=== PATIENT | female | born 1970 | race Caucasian/White ===

== ENCOUNTER 2022-02-22 22:29 | Observation (INO) | payer OTHER ==
[2022-02-22] MEDS ORDERED: ACETAMINOPHEN 1000 MG/100 ML BAG IVPB ONE (23:57)
[2022-02-23 00:35] LABS: BASO % 0.7 % (0-2.0); EOS % 3.7 % (0-4.5); HEMOGLOBIN 12.7 GM/dL (10.7-15.3)
[2022-02-23 00:37] LABS: HEMATOCRIT 37.9 % (32.4-45.2); LYMPH % 42.8 % (8-40); MCH 28.4 pg (25.7-33.7); MCHC 33.5 g/dl (32.0-36.0); MEAN CELL VOLUME 84.7 fl (80-96); MEAN PLT VOLUME 9.4 fl (7.5-11.1); MONO % 7.6 % (3.8-10.2); NEUT % 45.2 % (42.8-82.8); PLATELET COUNT 215 10^3/uL (134-434); RBC 4.48 M/mm3 (3.60-5.2); RDW 13.5 % (11.6-15.6)
[2022-02-23 00:55] LABS: ALBUMIN 3.8 g/dl (3.4-5.0); BLOOD UREA NITROGEN 18.8 mg/dL (7-18)
[2022-02-23 00:58] LABS: CREATININE 0.7 mg/dL (0.55-1.3)
[2022-02-23 00:59] LABS: TOT PROT 6.7 g/dl (6.4-8.2)
[2022-02-23 01:00] LABS: BILIRUBIN,TOTAL 0.2 mg/dL (0.2-1)
[2022-02-23] MEDS ORDERED: ACETAMINOPHEN INJECTION 100 ML IVPB ONE (01:02)
[2022-02-23 03:09] LABS: EPI CELLS 4 /uL (0-25.1); HYALINE CASTS 0 /uL (0-3.1); PH,URINE 7.5 (5.0-8.0); URINE APPEARANCE CLEAR; URINE BACTERIA 28 /uL (0-1359); URINE BILIRUBIN NEGATIVE (NEGATIVE); URINE COLOR YELLOW; URINE GLUCOSE (UA) NEGATIVE (NEGATIVE); URINE KETONE NEGATIVE (NEGATIVE); URINE LEUK ESTERASE TRACE (NEGATIVE); URINE NITRITE NEGATIVE (NEGATIVE); URINE PROTEIN NEGATIVE (NEGATIVE); URINE RBC 1 /uL (0-23.9); URINE UROBILINOGEN 0.2 mg/dL (0.2-1.0); URINE WBC 8 /uL (0-25.8)
[2022-02-23] MEDS ORDERED: ACETAMINOPHEN 325 MG TABLET (FP) PO PRN (04:49)
[2022-02-23] MEDS: ENOXAPARIN NA (PORCINE) 40 MG/0.4 ML DISP.SYRIN SQ SCH (14:37)
[2022-02-23 18:38] VITALS: BMI 28.0
[2022-02-23] MEDS: GABAPENTIN 100 MG CAPSULE PO SCH (21:16)
[2022-02-23] MEDS: MELATONIN 5 MG TABLETS PO PRN (21:16)
[2022-02-24 06:57] LABS: BASO % 0.5 % (0-2.0); EOS % 4.9 % (0-4.5); HEMATOCRIT 40.5 % (32.4-45.2); HEMOGLOBIN 13.2 GM/dL (10.7-15.3); LYMPH % 44.5 % (8-40); MCH 27.8 pg (25.7-33.7); MCHC 32.7 g/dl (32.0-36.0); MEAN CELL VOLUME 84.9 fl (80-96); MEAN PLT VOLUME 9.3 fl (7.5-11.1); MONO % 7.8 % (3.8-10.2); NEUT % 42.3 % (42.8-82.8); PLATELET COUNT 224 10^3/uL (134-434); RBC 4.77 M/mm3 (3.60-5.2); RDW 13.2 % (11.6-15.6); WHITE BLOOD COUNT 10.3 K/mm3 (4.0-10.0)
[2022-02-24 07:26] LABS: ALBUMIN 3.6 g/dl (3.4-5.0); BLOOD UREA NITROGEN 15.9 mg/dL (7-18); MAGNESIUM 2.1 mg/dL (1.8-2.4)
[2022-02-24 07:30] LABS: BILIRUBIN,TOTAL 0.3 mg/dL (0.2-1); CREATININE 0.8 mg/dL (0.55-1.3); TOT PROT 6.4 g/dl (6.4-8.2)
[2022-02-24 07:31] LABS: PHOSPHOROUS 4.2 mg/dL (2.5-4.9)
[2022-02-24] MEDS: ENOXAPARIN NA (PORCINE) 40 MG/0.4 ML DISP.SYRIN SQ SCH (10:54)
[2022-02-24] MEDS: GABAPENTIN 100 MG CAPSULE PO SCH (21:44)
[2022-02-24] MEDS: MELATONIN 5 MG TABLETS PO PRN (21:44)
[2022-02-25] MEDS: ENOXAPARIN NA (PORCINE) 40 MG/0.4 ML DISP.SYRIN SQ SCH (09:44)
[2022-02-25 14:41] VITALS: BP 137/72; PULSE 66; TEMP 98.5
== END 2022-02-25 15:34 | disposition home or self-care (01) ==
LOC: JER 22:29 → INTOOBSV 02-23 01:27 → JERBED 02-23 01:27 → J4W 02-23 18:10
PROVIDERS: ADMIT Internal Medicine; ATTEND Internal Medicine
CPT/HCPCS: 0241U-QW; 36415; 70450-TC; 70490-TC; 71045-TC-FY; 72040-TC; 72141-TC; 80053; 80061; 81003; 83036; 83735; 84100; 84443; 84484; 84703; 85025; 85651; 87086; 93005; 93010; 93306-TC; 99285-25; G0378